=== PATIENT | male | born 1995 | race Caucasian/White ===

== ENCOUNTER 2017-08-31 03:03 | Emergency (ER) | payer OTHER ==
[~2017-08-31] VITALS: Ht 190.5 cm; Wt 79.4 kg
[~2017-08-31 03:03] MED LIST: DIPH25; IBUP600 PO; IBUP800 PO; PRED10 PO; Percocet 5-3251 EACH PO; Ultram50 MG PO; [UNRECOGNIZED DRUG - REMARK]; [UNRECOGNIZED DRUG - REMARK]; [UNRECOGNIZED DRUG - REMARK]
== END 2017-08-31 04:13 | disposition home or self-care (01) ==
LOC: ER 03:03
DX: S09.90XA Unspecified injury of head, initial encounter (principal); Y04.2XXA Assault by strike against or bumped into by another person, initial encounter
CPT/HCPCS: 70450; 99284

== ENCOUNTER 2019-06-15 20:37 | Emergency (ER) | payer OTHER ==
[~2019-06-15] VITALS: Ht 190.5 cm; Wt 86.2 kg
== END 2019-06-15 21:46 | disposition home or self-care (01) ==
LOC: ER 20:37
DX: M79.641 Pain in right hand (principal); S60.221A Contusion of right hand, initial encounter; X58.XXXA Exposure to other specified factors, initial encounter
CPT/HCPCS: 73130; 99283-25

== ENCOUNTER 2023-07-02 22:59 | Emergency (ER) | payer SELFPAY ==
[~2023-07-02] VITALS: Ht 190.5 cm; Wt 95.2 kg
[2023-07-02 23:03] VITALS: BP 137/103
[2023-07-03] MEDS ORDERED: Vibramycin100 MG PO (00:20)
== END 2023-07-03 00:42 | disposition home or self-care (01) ==
LOC: ER 22:59
DX: N45.1 Epididymitis (principal)
CPT/HCPCS: 76870; 96372; 99284-25; A9270; J0696; J1885

== ENCOUNTER 2023-08-05 18:23 | Emergency (ER) | payer MEDICAID ==
[~2023-08-05] VITALS: Ht 193 cm; Wt 97.5 kg
[~2023-08-05 18:23] MED LIST changes: +Vibramycin100 MG PO
[2023-08-05] MEDS ORDERED: Amoxicillin875 MG PO (18:44)
[2023-08-05 18:49] VITALS: BP 148/95
[2023-08-05 19:16] LABS: BASOPHILS ABSOLUTE AUTO 0.06 K/mm3 (0.00-0.23); BASOPHILS PERCENT AUTO 1 % (0-2); EOSINOPHILS ABSOLUTE AUTO 0.25 K/mm3 (0.00-0.68); EOSINOPHILS PERCENT AUTO 2 % (0-6); Hematocrit 40.8 % (37.0-53.0); Hemoglobin 14.1 g/dL (13.5-17.5); IMMATURE GRAN ABSOLUTE AUTO 0.03 K/mm3 (0.00-0.10); IMMATURE GRAN PERCENT AUTO 0 % (0-1); LYMPHOCYTES ABSOLUTE AUTO 2.46 K/mm3 (0.84-5.20); LYMPHOCYTES PERCENT AUTO 19 % (21-46); MONOCYTES ABSOLUTE AUTO 1.72 K/mm3 (0.16-1.47); MONOCYTES PERCENT AUTO 13 % (4-13); Mean Corpuscular HGB 30.1 pg (26.0-34.0); Mean Corpuscular HGB Conc 34.6 g/dL (31.5-36.5); Mean Corpuscular Volume 87 fL (80-100); Mean Platelet Volume 9.2 fL (9.1-12.4); NEUTROPHILS ABSOLUTE AUTO 8.66 K/mm3 (1.96-9.15); NEUTROPHILS PERCENT AUTO 66 % (41-73); NRBC ABSOLUTE 0.02 K/mm3 (0.00-0.02); NRBC Auto 0.2 /100 WBC (0.0-0.2); Platelet Count 305 K/mm3 (150-400); RDW Coefficient Variation 12.3 % (11.7-14.2); RDW Standard Deviation 39.5 fL (35.1-46.3); Red Blood Cell Count 4.69 M/mm3 (4.30-5.90); White Blood Cell Count 13.18 K/mm3 (4.00-11.30)
[2023-08-05 19:43] LABS: Albumin, Blood 4.2 g/dL (3.4-5.0); Albumin/Globulin Ratio 1.3 (0.8-1.8); Bun/Creatinine Ratio 12.8 (12.0-20.0); Calcium, Blood 9.1 mg/dL (8.5-10.1); Creatinine, Blood 1.64 mg/dL (0.60-1.20); Globulin, Blood 3.2 g/dL (2.2-4.0); Potassium, Blood 3.4 mmol/L (3.5-5.5); Total Protein, Blood 7.4 g/dL (6.4-8.2)
[2023-08-05 20:23] LABS: Source, Urine Clean Catch
[2023-08-05 20:27] LABS: Appearance, Urine Clear (Clear); Bilirubin, Urine Neg (Neg); Blood, Urine 5+ (Neg); Color, Urine Yellow (P-Yellow); Glucose Qualitative, Urine Neg (Neg); Ketones, Urine Neg (Neg); Leukocyte Esterase, Urine 1+ (Neg); Nitrite, Urine Neg (Neg); Protein, Urine 2+ (Neg); Urobilinogen, Urine NORM (Normal)
[2023-08-05 20:44] LABS: Bacteria Rare /hpf; Red Blood Cells, Urine 50-100 /hpf (0-2); Squamous Epithelial Cells Few /hpf (Few)
[2023-08-05] MEDS ORDERED: ONDA4 PO (22:55)
== END 2023-08-05 23:05 | disposition home or self-care (01) ==
LOC: ER 18:23
PROVIDERS: Student in an Organized Health Care Education/Training Program
DX: N13.2 Hydronephrosis with renal and ureteral calculous obstruction (principal)
CPT/HCPCS: 74176; 80053; 81001; 85025; 96374; 96375; 99284-25; A9270; J1885; J2405

== ENCOUNTER 2025-04-26 22:22 | Emergency (ER) | payer SELFPAY ==
[~2025-04-26] VITALS: Ht 193 cm; Wt 95.2 kg
[~2025-04-26 22:22] MED LIST changes: +Amoxicillin875 MG PO; +ONDA4 PO
[2025-04-26 23:04] VITALS: BP 142/81
[2025-04-26] MEDS ORDERED: Lidocaine HCl 4% Cream 5 GM TOP ONE (23:30)
[2025-04-26] MEDS ORDERED: BACTRIM DS TAB1 EAC1 PO (23:30)
[2025-04-26] MEDS ORDERED: Trimethoprim/Sulfamethoxazole DS Tab PO ONE (23:30)
== END 2025-04-27 00:12 | disposition home or self-care (01) ==
LOC: ER 22:22
DX: L02.212 Cutaneous abscess of back [any part, except buttock and flank] (principal); L03.312 Cellulitis of back [any part except buttock and flank]
CPT/HCPCS: 10060; 99282-25; A9270